=== PATIENT | female | born 1980 | race Caucasian/White ===

== ENCOUNTER 2016-10-13 15:30 | Emergency (ER) | payer OTHER ==
--- NOTE | 2016-10-13 15:53 | PDOC ---
History of Present Illness <Nicholas Alonzo - Last Filed: 10/13/16 17:14> - General History Source: Patient Exam Limitations: No Limitations - History of Present Illness Initial Comments: 10/13/16 16:43 The patient is a 35 year old female, with no significant past medical history, who presents to the emergency department with intermittent nonradiating LLQ pain for the past 5 days. The patient reports that her pain began as a dull ache and over the course of the past 5 days has progressively worsened, prompting her to come to the ED for evaluation. She currently rates the pain as an 8/10 in severity. She reports that the pain is worsened by any movement, particularly when standing up or sitting down abruptly. The patient denies any fever, chills, nausea, vomiting or diarrhea. The patient denies any dysuria, hematuria, frequency, urgency or hesitancy. The patient denies any vaginal discharge. The patient reports that she is in a monogamous relationship with a single partner. The patient or her partner deny any history of STDs. The patient reports that she is currently on control (OCPs). LMP: approximately 2 weeks ago. Her partner is at the bedside. Allergies: None reported. Past Surgical History: None reported. Social History: Non-smoker. Denies alcohol or drug use. PCP: Dr. Jax Stevens <Michelle Abel - Last Filed: 10/13/16 17:22> - General Chief Complaint: Pain Stated Complaint: LLQ PAIN FOR 4-5 DAYS Time Seen by Provider: 10/13/16 15:53 Past History <Nicholas Alonzo - Last Filed: 10/13/16 17:14> <Michelle Abel - Last Filed: 10/13/16 17:22> - Past Medical History Allergies/Adverse Reactions: Allergies Allergy/AdvReac Type Severity Reaction Status Date / Time No Known Allergies Allergy Verified 10/13/16 15:47 Home Medications: Ambulatory Orders Albuterol Sulfate Inhaler - [Ventolin Hfa Inhaler -] 2 inh PO Q6H PRN 10/13/16 Naproxen [Naprosyn] 500 mg PO BID PRN #20 tablet 10/13/16 Norethindrone AC-Eth Estradiol [Junel] 1 each PO DAILY 10/13/16 Review of Systems - Review of Systems Able to Perform ROS?: Yes Comments:: 10/13/16 15:58 CONSTITUTIONAL: Absent: fever, chills, diaphoresis, generalized weakness, malaise, loss of appetite HEENT: Absent: rhinorrhea, nasal congestion, throat pain, throat swelling, difficulty swallowing, mouth swelling, ear pain, eye pain, visual Changes CARDIOVASCULAR: Absent: chest pain, syncope, palpitations, irregular heart rate, lightheadedness , peripheral edema RESPIRATORY: Absent: cough, shortness of breath, dyspnea with exertion, orthopnea, wheezing, stridor, hemoptysis GASTROINTESTINAL: Present: +LLQ abdominal pain Absent: abdominal distension, nausea, vomiting, diarrhea, constipation, melena, hematochezia GENITOURINARY: Absent: dysuria, frequency, urgency, hesitancy, hematuria, flank pain, genital pain MUSCULOSKELETAL: Absent: myalgia, arthralgia, joint swelling SKIN: Absent: rash, itching, pallor HEMATOLOGIC/IMMUNOLOGIC: Absent: easy bleeding, easy bruising, lymphadenopathy, frequent infections ENDOCRINE: Absent: unexplained weight gain, unexplained weight loss, heat intolerance, cold intolerance NEUROLOGIC: Absent: headache, focal weakness or paresthesias, dizziness, unsteady gait, seizure, mental status changes, bladder or bowel incontinence PSYCHIATRIC: Absent: anxiety, depression, suicidal or homicidal ideation, hallucinations <Michelle Abel - Last Filed: 10/13/16 17:22> *Physical Exam - Physical Exam Comments: 10/13/16 16:36 GENERAL: Well developed, well nourished. Awake and alert. No acute distress. HEENT: Normocephalic, atraumatic. PERRLA, EOMI. No conjunctival pallor. Sclera are non-icteric. Moist mucous membranes. Oropharynx is clear. NECK: Supple. Full ROM. No JVD. Carotid pulses 2+ and symmetric, without bruits. No thyromegaly. No lymphadenopathy. CARDIOVASCULAR: Regular rate and rhythm. No murmurs, rubs, or gallops. Distal pulses are 2+ and symmetric. PULMONARY: No evidence of respiratory distress. Lungs clear to auscultation bilaterally. No wheezing, rales or rhonchi. ABDOMINAL: LLQ tenderness on deep palpation. Soft. Non-distended. No rebound or guarding. No organomegaly. Normoactive bowel sounds. MUSCULOSKELETAL: Left lower lumbar paraspinal muscle tenderness. Normal range of motion at all joints. No bony deformities. No CVA tenderness. EXTREMITIES: No cyanosis. No clubbing. No edema. No calf tenderness. SKIN: Warm and dry. Normal capillary refill. No rashes. No jaundice. NEUROLOGICAL: Alert, awake, appropriate. Cranial nerves 2-12 intact. No deficits to light touch and temperature in face, upper extremities and lower extremities. No motor deficits in the in face, upper extremities and lower extremities. Normoreflexic in the upper and lower extremities. Normal speech. Toes are down-going bilaterally. Gait is normal without ataxia. PSYCHIATRIC: Cooperative. Good eye contact. Appropriate mood and affect. <Michelle Abel - Last Filed: 10/13/16 17:22> ED Treatment Course - LABORATORY CBC & Chemistry Diagram: 10/13/16 16:15 10/13/16 16:15 <Nicholas Alonzo - Last Filed: 10/13/16 17:14> - LABORATORY CBC & Chemistry Diagram: 10/13/16 16:15 10/13/16 16:15 <Michelle Abel - Last Filed: 10/13/16 17:22> Medical Decision Making - Medical Decision Making 10/13/16 15:54 The patient is well-appearing and in no acute distress She does have left lower quadrant tenderness She does not have any accompanying symptoms I'm suspicious for possible ovarian pathology Will obtain labs, urinalysis, transvaginal ultrasound 10/13/16 17:07 Chemistries noted Ultrasound noted, consistent with probable fibroid No evidence of ovarian cyst or torsion Given the constancy of her pain, the lack of torsion seen on ultrasound has a high negative predictive value I discussed the risks and benefits of CT now versus discharge and return if symptoms persist with the patient and her partner. They both understood the risks and benefits. I answered all of their questions. They adamantly preferred discharge. They understand the importance of returning if her symptoms persist, if new symptoms develop, or if they do not improve. Clinical impression: Abdominal pain Uterine fibroid I discussed the physical exam findings, ancillary test results and final diagnoses with the patient. I answered all of the patient's questions. The patient was satisfied with the care received and felt comfortable with the discharge plan and treatment plan. The patient will call their primary care physician within 24 hours to arrange follow-up and will return to the Emergency Department with any new, persistent or worsening symptoms. 10/13/16 17:14 <Nicholas Alonzo - Last Filed: 10/13/16 17:14> *DC/Admit/Observation/Transfer <Nicholas Alonzo - Last Filed: 10/13/16 17:14> - Attestations Scribe Attestion: 10/13/16 15:56 Documentation prepared by Michelle Abel, acting as medical office worker for Nicholas Alonzo MD. <Michelle Abel - Last Filed: 10/13/16 17:22> Diagnosis at time of Disposition: Abdominal pain - Discharge Dispostion Disposition: HOME Condition at time of disposition: Good - Prescriptions Prescriptions: Naproxen [Naprosyn] 500 mg PO BID PRN #20 tablet PRN Reason: Pain - Referrals Referrals: Jax Stevens MD [Primary Care Provider] - - Patient Instructions Printed Discharge Instructions: DI for Uterine Fibroids, DI for Abdominal Pain- Adult Additional Instructions: Return to the emergency department immediately with ANY new, persistent or worsening symptoms. You MUST call and follow up with your doctor tomorrow. Please make sure your doctor reviews the results of your emergency department evaluation.
[2016-10-13 16:08] VITALS: BP 106/71; PULSE 78; TEMP 99.3; BMI 25.7
[2016-10-13 16:29] LABS: BASOPHIL 1.4 % (0-2.0); EOSINOPHIL 4.9 % (0-4.5); MCH 29.2 pg (25.7-33.7); MCHC 34.5 g/dl (32.0-36.0); MEAN CELL VOLUME 84.7 fl (80-96); MEAN PLT VOLUME 9.6 fl (7.5-11.1); NEUTROPHILS 56.1 % (42.8-82.8); PLATELET COUNT 287 K/MM3 (134-434); WHITE BLOOD COUNT 11.4 K/mm3 (4.0-10.8)
[2016-10-13 16:39] LABS: URINE APPEARANCE Clear; URINE BILIRUBIN Negative (NEGATIVE); URINE BLOOD Negative (NEGATIVE); URINE GLUCOSE (UA) Negative (NEGATIVE); URINE KETONE Negative (NEGATIVE); URINE LEUK ESTERASE Negative (NEGATIVE); URINE NITRITE Negative (NEGATIVE); URINE PROTEIN Negative (NEGATIVE); URINE UROBILINOGEN 0.2 E.U/dl (0.2-1.0)
[2016-10-13 16:51] LABS: URINE COLOR YELLOW
[2016-10-13 17:00] LABS: ALBUMIN 3.9 g/dl (3.5-5.0); ALK PHOS 57 U/L (32-92); BILIRUBIN,TOTAL 0.4 mg/dl (0.2-1.0); CALCIUM 8.7 mg/dl (8.4-10.2); CREATININE 0.7 mg/dl (0.6-1.3); GLUCOSE,RANDOM 113 mg/dl (74-106); SGOT/AST 16 U/L (10-42); SGPT/ALT 15 U/L (10-40); TOT PROT 6.3 g/dl (6.4-8.3)
[2016-10-13 17:31] LABS: ANION GAP 8 (8-16); CO2 22 mmol/L (22-28)
== END 2016-10-13 17:37 | disposition home or self-care (01) ==
LOC: FER 15:30
DX: R10.9 Unspecified abdominal pain (principal)
CPT/HCPCS: 36415; 76830-TC; 80053; 81003; 83690; 85025; 99283-25

== ENCOUNTER 2018-02-09 19:24 | Emergency (ER) | payer OTHER ==
[2018-02-09] MEDS ORDERED: EPINEPHrine 1:1,000 0.3 MG/0.3 ML SYR IM ONE (19:39)
[2018-02-09] MEDS ORDERED: methylPREDNISolone NA SUCC 125 MG/2 ML VIAL IVPUSH ONE (19:39)
[2018-02-09] MEDS ORDERED: FAMOTIDINE 20 MG/50 ML IVPB 20 MG/50 ML MG IVPB ONE ×2 (19:39→19:48)
[2018-02-09 19:43] VITALS: TEMP 97.8; BMI 27.8
[2018-02-09] MEDS ORDERED: EPINEPHrine/PF 1 MG/1 ML (1:1,000) AMPULE ONE (19:47)
[2018-02-09] MEDS ORDERED: methylPREDNISolone NA SUCC 125 MG/2 ML VIAL ONE (19:48)
--- NOTE | 2018-02-09 20:03 | PDOC ---
Attending Attestation - Physicial Exam PE: 02/09/18 20:15 NAD, well appearing, PERRL, EOMI, clear conjunctiva, anicteric, moist mucus membranes, clear oropharynx. Airway patent, normal phonation. Uvula midline. neck supple. lungs clear, RRR, abdomen soft nontender. BUTT x4, no focal neuro deficits. No peripheral edema. normal color for ethnicity, WWP. +diffuse urticaria over back, neck, torso, abdomen, BUE and BLE. no rash - Medical Decision Making 02/09/18 20:15 Documentation prepared by Nalini Cee, acting as coroner/medical examiner for Edilia Woods MD. <Nalini Cee - Last Filed: 02/09/18 20:15> - Resident Resident Name: Jax Arizmendi - ED Attending Attestation I have performed the following: I have examined & evaluated the patient, The case was reviewed & discussed with the resident, I agree w/resident's findings & plan - Medical Decision Making 02/09/18 20:00 37 YOF with asthma and anxiety presenting with allergic reaction to unknown substance, unclear etiology. ate leftover food, possible exposure to new detergent vs family dog recently visiting vet. no travel or sick prodrome. no prior history of allergy. vitals reviewed and repeated, normotensive. airway intact, no respiratory distress or sx. +diffuse urticaria noted DDx. allergic reaction: hypersensitivity reaction, allergic reaction, anaphylaxis, hives/urticaria. drug rash. dermatitis. serum sickness. vasculitis. medication side effect. -No fevers or systemic findings, clinically well appearing. no mucosal involvement so doubt SJS/TEN. airway patent, doubt anaphylaxis or Dress syndrome. - ED course: pepcid, benadryl and steroids. observed in the ED and clinically improved. Dispo: Pt to be discharged in stable condition. Patient and family made aware of impression and plan, return precautions discussed (including but not limited to worsening pain or symptoms), fevers, or signs of infection, chest pain, respiratory distress, inability to tolerate oral intake, dehydration, syncope, or neurologic changes). Follow up with PMD and/or specialist as recommended, follow up information provided, take medications as instructed for duration of time. continue with supportive care, avoid triggers and precipitants. rx epi pen and instruction on use described, benadryl ATC x 2-3 days, pepcid PO for dual histamine blockade. PO prednisone x 3 days. 02/09/18 20:05 <Edilia Woods - Last Filed: 02/09/18 20:52>
[2018-02-09] MEDS ORDERED: SODIUM CHLORIDE 1,000 ML IV STA (20:24)
--- NOTE | 2018-02-09 20:35 | PDOC ---
History of Present Illness - General Chief Complaint: Allergic Reaction Stated Complaint: ALLERGIC REACTION Time Seen by Provider: 02/09/18 19:38 History Source: Patient Exam Limitations: No Limitations Past History - Past Medical History Allergies/Adverse Reactions: Allergies Allergy/AdvReac Type Severity Reaction Status Date / Time No Known Allergies Allergy Verified 10/13/16 15:47 Home Medications: Ambulatory Orders Albuterol Sulfate Inhaler - [Ventolin Hfa Inhaler -] 2 inh PO Q6H PRN 10/13/16 Naproxen [Naprosyn] 500 mg PO BID PRN #20 tablet 10/13/16 Norethindrone AC-Eth Estradiol [Junel] 1 each PO DAILY 10/13/16 Asthma: Yes COPD: No CHF: No - Suicide/Smoking/Psychosocial Hx Smoking History: Current every day smoker Have you smoked in the past 12 months: No Number of Cigarettes Smoked Daily: 20 Information on smoking cessation initiated: No Hx Alcohol Use: No Drug/Substance Use Hx: No Substance Use Type: Alcohol, Marijuana Review of Systems - Review of Systems Able to Perform ROS?: Yes Comments:: 02/09/18 20:35 CONSTITUTIONAL: Absent: fever, chills, diaphoresis, generalized weakness, malaise, loss of appetite HEENT: Absent: rhinorrhea, nasal congestion, throat pain, throat swelling, difficulty swallowing, mouth swelling, ear pain, eye pain, visual Changes CARDIOVASCULAR: Absent: chest pain, loss of consciousness, palpitations, irregular heart rate, peripheral edema RESPIRATORY: Absent: cough, shortness of breath, dyspnea with exertion, orthopnea, wheezing, stridor, hemoptysis GASTROINTESTINAL: Absent: abdominal pain, abdominal distension, nausea, vomiting, diarrhea, constipation, melena, hematochezia GENITOURINARY: Absent: dysuria, frequency, urgency, hesitancy, hematuria, flank pain, genital pain MUSCULOSKELETAL: Absent: myalgia, arthralgia, joint swelling SKIN: +rash, itching Absent: pallor HEMATOLOGIC/IMMUNOLOGIC: Absent: easy bleeding, easy bruising, lymphadenopathy, frequent infections ENDOCRINE: Absent: unexplained weight gain, unexplained weight loss, heat intolerance, cold intolerance NEUROLOGIC: Absent: headache, focal weakness or paresthesias, dizziness, unsteady gait, seizure, mental status changes, bladder or bowel incontinence PSYCHIATRIC: Absent: anxiety, depression, suicidal or homicidal ideation, hallucinations. Is the patient limited Frisian proficient: No *Physical Exam - Vital Signs Last Vital Signs Temp Pulse Resp BP Pulse Ox 97.8 F 64 18 107/60 100 02/09/18 19:26 02/09/18 20:03 02/09/18 20:03 02/09/18 20:03 02/09/18 20:03 ED Treatment Course - Medications Given in the ED: ED Medications Discontinued Medications Generic Name Dose Route Start Last Admin Trade Name Oumar PRN Reason Stop Dose Admin Diphenhydramine HCl 50 mg 02/09/18 19:39 02/09/18 19:57 Benadryl Injection - IVPUSH 02/09/18 19:40 50 mg ONCE ONE Administration Famotidine/Sodium Chloride 20 mg in 50 mls @ 100 mls/hr 02/09/18 19:39 19:57 Pepcid 20 Mg Premixed Ivpb - IVPB 02/09/18 20:08 100 mls/hr ONCE ONE Administration Methylprednisolone Sodium Succinate 125 mg 02/09/18 19:39 02/09/18 19:58 Solu-Medrol - IVPUSH 02/09/18 19:40 125 mg ONCE ONE Administration *DC/Admit/Observation/Transfer - Referrals Referrals: Jax Stevens MD [Primary Care Provider] - - Patient Instructions - Post Discharge Activity
--- NOTE | 2018-02-09 20:51 | PDOC ---
History of Present Illness - History of Present Illness Initial Comments: 02/09/18 21:00 Patient is a 37 year old female with past medical history of anxiety and asthma , known allergy to cats, who presents to the ED s/p allergic reaction about 40 minutes prior to arrival. Patient developed a burning sensation in her ears and her skin gradually became itchy, red, and warm to the touch. She reports having a typical day, going to work and then went to sisters to help care for her sick dog. Reports eating leftovers from the weekend which she did not have a reaction to in the past. Her house was recently treated for a bed bug infestation and all her clothes were sent out to be cleaned. She denies any throat swelling, SOB, cough, chest pain. Denies any fevers or chills. Denies using any new lotions or soaps. <Nalini Cee - Last Filed: 02/09/18 21:00> - General History Source: Patient Exam Limitations: No Limitations <Edilia Woods - Last Filed: 02/09/18 23:27> - General Chief Complaint: Allergic Reaction Stated Complaint: ALLERGIC REACTION Time Seen by Provider: 02/09/18 19:38 Past History <Nalini Cee - Last Filed: 02/09/18 21:00> - Past Medical History Asthma: Yes COPD: No CHF: No - Suicide/Smoking/Psychosocial Hx Smoking History: Current every day smoker Have you smoked in the past 12 months: No Number of Cigarettes Smoked Daily: 20 Information on smoking cessation initiated: No Hx Alcohol Use: No Drug/Substance Use Hx: No Substance Use Type: Alcohol, Marijuana <Edilia Woods - Last Filed: 02/09/18 23:27> - Past Medical History Allergies/Adverse Reactions: Allergies Allergy/AdvReac Type Severity Reaction Status Date / Time No Known Allergies Allergy Verified 10/13/16 15:47 Home Medications: Ambulatory Orders Albuterol Sulfate Inhaler - [Ventolin Hfa Inhaler -] 2 inh PO Q6H PRN 10/13/16 Norethindrone AC-Eth Estradiol [Junel] 1 each PO DAILY 10/13/16 Diphenhydramine [Benadryl -] 50 mg NR TID #12 capsule 02/09/18 EPINEPHrine (EPI-PEN 0.3MG) [Epipen 0.3MG -] 0.3 mg IM ASDIR PRN #2 pens Famotidine [Pepcid -] 20 mg PO BID #10 tablet 02/09/18 Prednisone [Prednisone 50 MG TABLETS] 50 mg PO DAILY #3 tablet 02/09/18 Review of Systems - Review of Systems Able to Perform ROS?: Yes Comments:: 02/09/18 20:56 Constitutional: no fevers or chills. HEENT: no headache or dizziness. No congestion. CVS: no cp or syncope. Resp: no sob. No cough. Abdomen: no abdominal pain, +nausea and vomiting MUSCULOSKELETAL: No joint pain and swelling. No neck or back pain. SKIN: +rash, no wounds. Hematologic: no easy bruising/bleeding. NEUROLOGIC: No headache, dizziness, LOC or altered mental status. No weakness, numbness or tingling. All other systems reviewed and negative, or as documented in HPI. <Edilia Woods - Last Filed: 02/09/18 23:27> *Physical Exam - Vital Signs Last Vital Signs Temp Pulse Resp BP Pulse Ox 97.8 F 64 18 107/60 100 02/09/18 19:26 02/09/18 20:03 02/09/18 20:03 02/09/18 20:03 02/09/18 20:03 <Nalini Cee - Last Filed: 02/09/18 21:00> - Vital Signs Last Vital Signs Temp Pulse Resp BP Pulse Ox 97.8 F 64 18 107/60 100 02/09/18 19:26 02/09/18 20:03 02/09/18 20:03 02/09/18 20:03 02/09/18 20:03 - Physical Exam Comments: 02/09/18 20:57 General: Well appearing, awake and alert, NAD. HEENT: NCAT, PERRL, EOMI, clear conjunctiva, anicteric, moist mucus membranes, clear oropharynx, no oral lesions.. Airway patent, normal phonation. Uvula midline. no angioedema. Neck: neck supple, FROM Resp: CTAB, normal and even respirations, no respiratory distress CVS: RRR, no murmurs, 2+ peripheral pulses throughout, no peripheral edema Abdomen: soft, NTND, no peritoneal signs. Back: nontender, normal inspection and ROM MSK: no edema, BUTT x4, ROM intact. No clubbing or cyanosis. normal bulk and tone. Extrem: no calf tenderness Neuro: alert, oriented appropriately; no focal neurologic deficits Skin: warm and well perfused, cap refill <2 sec, +diffuse urticaria over back, neck, torso, abdomen, BUE and BLE. no rash <Edilia Woods - Last Filed: 02/09/18 23:27> ED Treatment Course - Medications Given in the ED: ED Medications Discontinued Medications Generic Name Dose Route Start Last Admin Trade Name Freq PRN Reason Stop Dose Admin Diphenhydramine HCl 50 mg 02/09/18 19:39 02/09/18 19:57 Benadryl Injection - IVPUSH 02/09/18 19:40 50 mg ONCE ONE Administration Epinephrine 0.3 mg 02/09/18 19:39 02/09/18 20:40 Epipen 0.3mg - IM 02/09/18 19:40 Not Given ONCE ONE Famotidine/Sodium Chloride 20 mg in 50 mls @ 100 mls/hr 02/09/18 19:39 19:57 Pepcid 20 Mg Premixed Ivpb - IVPB 02/09/18 20:08 100 mls/hr ONCE ONE Administration Methylprednisolone Sodium Succinate 125 mg 02/09/18 19:39 02/09/18 19:58 Solu-Medrol - IVPUSH 02/09/18 19:40 125 mg ONCE ONE Administration <Nalini Cee - Last Filed: 02/09/18 21:00> - Medications Given in the ED: ED Medications Discontinued Medications Generic Name Dose Route Start Last Admin Trade Name Freq PRN Reason Stop Dose Admin Diphenhydramine HCl 50 mg 02/09/18 19:39 02/09/18 19:57 Benadryl Injection - IVPUSH 02/09/18 19:40 50 mg ONCE ONE Administration Epinephrine 0.3 mg 02/09/18 19:39 02/09/18 20:40 Epipen 0.3mg - IM 02/09/18 19:40 Not Given ONCE ONE Famotidine/Sodium Chloride 20 mg in 50 mls @ 100 mls/hr 02/09/18 19:39 19:57 Pepcid 20 Mg Premixed Ivpb - IVPB 02/09/18 20:08 100 mls/hr ONCE ONE Administration Methylprednisolone Sodium Succinate 125 mg 02/09/18 19:39 02/09/18 19:58 Solu-Medrol - IVPUSH 02/09/18 19:40 125 mg ONCE ONE Administration <Edilia Woods - Last Filed: 02/09/18 23:27> Medical Decision Making - Medical Decision Making 02/09/18 20:51 37 YOF with asthma and anxiety presenting with allergic reaction to unknown substance, unclear etiology. ate leftover food, possible exposure to new detergent vs family dog recently visiting vet. no travel or sick prodrome. no prior history of allergy. vitals reviewed and repeated, normotensive. airway intact, no respiratory distress or sx. +diffuse urticaria noted DDx. allergic reaction: hypersensitivity reaction, allergic reaction, anaphylaxis, hives/urticaria. drug rash. dermatitis. serum sickness. vasculitis. medication side effect. -No fevers or systemic findings, clinically well appearing. no mucosal involvement so doubt SJS/TEN. airway patent, doubt anaphylaxis or Dress syndrome. - ED course: pepcid, benadryl and steroids. observed in the ED and clinically improved. no epi required as isolated urticaria and no airway involvement on assessment. Dispo: Pt to be discharged in stable condition. Patient and family made aware of impression and plan, return precautions discussed (including but not limited to worsening pain or symptoms), fevers, or signs of infection, chest pain, respiratory distress, inability to tolerate oral intake, dehydration, syncope, or neurologic changes). Follow up with PMD and/or specialist as recommended, follow up information provided, take medications as instructed for duration of time. continue with supportive care, avoid triggers and precipitants. rx epi pen and instruction on use described, benadryl ATC x 2-3 days, pepcid PO for dual histamine blockade. PO prednisone x 3 days additionally. 02/09/18 23:27 <Edilia Woods - Last Filed: 02/09/18 23:27> *DC/Admit/Observation/Transfer - Attestations Scribe Attestion: 02/09/18 21:01 Documentation prepared by Nalini Cee, acting as medical director/head team physician for Edilia Woods MD. <Nalini Cee - Last Filed: 02/09/18 21:00> - Discharge Dispostion Decision to Admit order: No <Edilia Woods Peggyjacquelyn - Last Filed: 02/09/18 23:27> Diagnosis at time of Disposition: Urticaria, Allergic reaction - Discharge Dispostion Disposition: HOME Condition at time of disposition: Improved - Prescriptions Prescriptions: Diphenhydramine [Benadryl -] 50 mg NR TID #12 capsule EPINEPHrine (EPI-PEN 0.3MG) [Epipen 0.3MG -] 0.3 mg IM ASDIR PRN #2 pens PRN Reason: Shortness Of Breath Famotidine [Pepcid -] 20 mg PO BID #10 tablet Prednisone [Prednisone 50 MG TABLETS] 50 mg PO DAILY #3 tablet - Referrals Referrals: Jax Stevens MD [Primary Care Provider] - - Patient Instructions Printed Discharge Instructions: DI for Hives, DI for General Allergic Reactions Additional Instructions: you have been evaluated in the emergency department for hives and severe allergic reaction, no epinephrine required you are to avoid potential triggers, keep a diary - including animal or pet contact, environmental triggers, new detergents or clothing. take prednisone (steroids) daily x 3 more days take benadryl 1-2 capsules every 6 to 8 hours for your rash/hives around the clock for 2-3 days also take pepcid twice a day for nausea and histamine relief. stay well hydrated. epinephrine pen ONLY for signs and symptoms of anaphylaxis where you feel faint , dizzy, pass out, airway involvement, difficulty breathing, throat closing up or respiratory distress. inject with blue to the ellie, on your lateral thigh. return if worsening symptoms, but follow up with primary doctor and financial analyst intern for your symptoms and full evaluation of trigger. - Post Discharge Activity Forms/Work/School Notes: Back to Work
[2018-02-09 21:05] VITALS: BP 135/73
[2018-02-09] MEDS ORDERED: predniSONE 20 MG TABLET (UD) PO ONE (23:07)
[2018-02-09] MEDS ORDERED: predniSONE 10 MG TABLET (UD) ONE (23:15)
[2018-02-09] MEDS ORDERED: predniSONE 20 MG TABLET (UD) ONE (23:15)
[2018-02-09 23:20] VITALS: PULSE 75
== END 2018-02-09 23:30 | disposition home or self-care (01) ==
LOC: JER 19:24
PROC: 3E0337Z Introduction of Electrolytic and Water Balance Substance into Peripheral Vein, Percutaneous Approach (ICD-10-PCS; principal; 2018-02-09)
PROC: 3E033GC Introduction of Other Therapeutic Substance into Peripheral Vein, Percutaneous Approach (ICD-10-PCS; 2018-02-09)
PROC: 3E033GC Introduction of Other Therapeutic Substance into Peripheral Vein, Percutaneous Approach (ICD-10-PCS; 2018-02-09)
PROC: 3E0333Z Introduction of Anti-inflammatory into Peripheral Vein, Percutaneous Approach (ICD-10-PCS; 2018-02-09)
DX: L50.0 Allergic urticaria (principal); T78.40XA Allergy, unspecified, initial encounter; Z87.09 Personal history of other diseases of the respiratory system
CPT/HCPCS: 99283-25; J7030